=== PATIENT | male | born 1970 | race Caucasian/White ===

== ENCOUNTER 2018-07-03 13:55 | Outpatient (CLI) | payer BC ==
--- NOTE | 2018-07-03 15:36 | ULT ---
LEFT LOWER EXTREMITY VENOUS DUPLEX EXAM: 07/03/18 HISTORY: Left leg pain and swelling. Real time color doppler evaluation of the left lower extremity is performed from groin to calf. This includes evaluation of common femoral, superficial and profunda femoral, saphenous, popliteal and pos terior tibial veins. This shows a patent deep venous system. There is normal compressibility and aug mentation. There is no evidence of DVT. IMPRESSION: No evidence of DVT of the left lower extremity. POS: [facility]
== END 2018-07-03 13:56 | disposition home or self-care (01) ==
LOC: SCSULT 13:55
PROVIDERS: ATTEND Family Medicine
DX: M79.662 Pain in left lower leg (principal)